=== PATIENT | male | born 1930 ===

== ENCOUNTER → 2016-05-25 | Outpatient (REF) | payer MEDICARE, BC ==
[2016-05-25 18:41] LABS: FOLATE > 24.0 NG/ML; VITAMIN B12 LEVEL 1250 PG/ML
== END ==
LOC: M LAB REF 16:29
PROVIDERS: ATTEND Internal Medicine
DX: F03.90 Unspecified dementia, unspecified severity, without behavioral disturbance, psychotic disturbance, mood disturbance, and anxiety (principal)

== ENCOUNTER → 2018-05-31 | Outpatient (REF) | payer MEDICARE, BC ==
[2018-05-31 18:54] LABS: FOLATE 7.2 NG/ML
== END ==
LOC: M LAB REF 17:56
PROVIDERS: ATTEND Internal Medicine
DX: G60.9 Hereditary and idiopathic neuropathy, unspecified (principal)